=== PATIENT | male | born 1950 | race Caucasian/White ===

== ENCOUNTER → 2018-11-15 08:26 | Outpatient (CLI) | payer MEDICARE, SELFPAY ==
[2018-11-15 09:02] LABS: Basophils # 0.1 K/mm3 (0-0.2); Eosinophils # 0.4 K/mm3 (0.0-0.4); Eosinophils % 5.4 % (0.1-12.0); Hematocrit 44.3 % (42.0-52.0); Hemoglobin 14.7 g/dL (14.1-18.0); Lymphocytes # 1.6 K/mm3 (0.7-4.5); Lymphocytes % 22.6 % (10-50); Mean Corpuscular HGB Conc 33.2 g/dL (31.8-35.4); Mean Corpuscular Hemoglobin 31.1 pg (27.0-31.2); Mean Corpuscular Volume 93.6 fl (80-94); Mean Platelet Volume 7.2 fl (7.4-10.4); Monocytes # 0.6 K/mm3 (0.1-1.0); Monocytes % 7.9 % (1.7-9.3); Neutrophils # 4.6 K/mm3 (1.8-7.8); Neutrophils % 63.1 % (37.0-80.0); Platelet Count 317 K/mm3 (142-424); Red Blood Count 4.73 M/mm3 (4.60-6.20); Red Cell Distribution Width 12.9 % (11.5-17.5); White Blood Count 7.3 K/mm3 (4.8-10.8)
[2018-11-15 10:18] LABS: Alanine Aminotransferase 19 U/L (12-78); Albumin Level 3.7 gm/dL (3.4-5.0); Albumin/Globulin Ratio 1.1 (1.1-1.8); Alkaline Phosphatase 60 U/L (46-116); Anion Gap 9.1 mEq/L (5-15); Aspartate Amino Transferase 17 U/L (15-37); Bilirubin,Total 0.4 mg/dL (0.2-1.0); Blood Urea Nitrogen 19 mg/dL (7-18); Calcium 9.1 mg/dL (8.5-10.1); Carbon Dioxide 31 mmol/L (21.0-32.0); Chloride 107 mmol/L (98-107); Chol/HDL Ratio 5.6 (1-3.5); Cholesterol 223 mg/dL (140-200); Creatinine,Serum 1.07 mg/dL (0.70-1.30); Estimated Glomerular Filt Rate 69 ml/min (>60); GFR (African American) 84 ML/MIN (>60); Globulin 3.3 gm/dl (1.3-3.2); Glucose 111 mg/dL (74-106); HDL Cholesterol 40 mg/dL (27-67); LDL Cholesterol 161 mg/dL (0-130); Potassium 4.1 mmoL/L (3.5-5.1); Sodium 143 mmol/L (136-145); Triglycerides 112 mg/dL (30-200); VLDL Cholesterol 22 mg/dL (0-40)
== END ==
PROVIDERS: Visit Provider Internal Medicine Adolescent Medicine
DX: E78.5 Hyperlipidemia, unspecified (principal); J18.1 Lobar pneumonia, unspecified organism
CPT/HCPCS: 36415; 80053; 80061; 85025

== ENCOUNTER → 2019-01-10 07:28 | Outpatient (CLI) | payer MEDICARE, SELFPAY ==
[2019-01-10 10:38] LABS: Alanine Aminotransferase 19 U/L (12-78); Albumin Level 3.6 gm/dL (3.4-5.0); Albumin/Globulin Ratio 1.1 (1.1-1.8); Alkaline Phosphatase 65 U/L (46-116); Anion Gap 10.6 mEq/L (5-15); Aspartate Amino Transferase 13 U/L (15-37); Bilirubin,Total 0.4 mg/dL (0.2-1.0); Blood Urea Nitrogen 18 mg/dL (7-18); Calcium 9.2 mg/dL (8.5-10.1); Carbon Dioxide 28 mmol/L (21.0-32.0); Chloride 106 mmol/L (98-107); Chol/HDL Ratio 4.6 (1-3.5); Cholesterol 174 mg/dL (140-200); Creatinine,Serum 1.05 mg/dL (0.70-1.30); Estimated Glomerular Filt Rate 71 ml/min (>60); GFR (African American) 86 ML/MIN (>60); Globulin 3.4 gm/dl (1.3-3.2); Glucose 105 mg/dL (74-106); HDL Cholesterol 38 mg/dL (27-67); LDL Cholesterol 111 mg/dL (0-130); Potassium 3.6 mmoL/L (3.5-5.1); Sodium 141 mmol/L (136-145); Triglycerides 127 mg/dL (30-200); VLDL Cholesterol 25 mg/dL (0-40)
== END ==
PROVIDERS: Visit Provider Internal Medicine Adolescent Medicine
DX: E78.5 Hyperlipidemia, unspecified (principal)
CPT/HCPCS: 36415; 80053; 80061

== ENCOUNTER → 2019-03-07 07:02 | Outpatient (CLI) | payer MEDICARE, SELFPAY ==
[2019-03-07 07:37] LABS: Basophils # 0.1 K/mm3 (0-0.2); Eosinophils # 0.3 K/mm3 (0.0-0.4); Eosinophils % 3.6 % (0.1-12.0); Hematocrit 44.7 % (42.0-52.0); Hemoglobin 14.8 g/dL (14.1-18.0); Lymphocytes # 1.9 K/mm3 (0.7-4.5); Lymphocytes % 23.4 % (10-50); Mean Corpuscular HGB Conc 33.2 g/dL (31.8-35.4); Mean Corpuscular Hemoglobin 30.7 pg (27.0-31.2); Mean Corpuscular Volume 92.5 fl (80-94); Mean Platelet Volume 7.6 fl (7.4-10.4); Monocytes # 0.7 K/mm3 (0.1-1.0); Monocytes % 8.6 % (1.7-9.3); Neutrophils # 5.2 K/mm3 (1.8-7.8); Neutrophils % 63.3 % (37.0-80.0); Platelet Count 315 K/mm3 (142-424); Red Blood Count 4.83 M/mm3 (4.60-6.20); Red Cell Distribution Width 12.8 % (11.5-17.5); White Blood Count 8.2 K/mm3 (4.8-10.8)
[2019-03-07 08:25] LABS: Alanine Aminotransferase 18 U/L (12-78); Albumin Level 3.9 gm/dL (3.4-5.0); Albumin/Globulin Ratio 1.1 (1.1-1.8); Alkaline Phosphatase 57 U/L (46-116); Anion Gap 14.9 mEq/L (5-15); Aspartate Amino Transferase 15 U/L (15-37); Bilirubin,Total 0.4 mg/dL (0.2-1.0); Blood Urea Nitrogen 25 mg/dL (7-18); Calcium 8.9 mg/dL (8.5-10.1); Carbon Dioxide 27 mmol/L (21.0-32.0); Chloride 106 mmol/L (98-107); Cholesterol 201 mg/dL (140-200); Creatinine,Serum 1.16 mg/dL (0.70-1.30); Estimated Glomerular Filt Rate 63 ml/min (>60); GFR (African American) 76 ML/MIN (>60); Globulin 3.5 gm/dl (1.3-3.2); Glucose 100 mg/dL (74-106); HDL Cholesterol 50 mg/dL (27-67); LDL Cholesterol 128 mg/dL (0-130); Potassium 3.9 mmoL/L (3.5-5.1); Sodium 144 mmol/L (136-145); Total Protein,Serum 7.4 gm/dL (6.4-8.2); Triglycerides 113 mg/dL (30-200); VLDL Cholesterol 23 mg/dL (0-40)
== END ==
PROVIDERS: Visit Provider Internal Medicine Adolescent Medicine
DX: E78.5 Hyperlipidemia, unspecified (principal); I10 Essential (primary) hypertension
CPT/HCPCS: 36415; 80053; 80061; 85025

== ENCOUNTER 2020-06-20 20:02 | Emergency (ER) | payer MEDICARE, SELFPAY ==
[2020-06-20 20:27] VITALS: BP 144/104; PULSE 88; RESP 16; TEMP 36.7; O2SAT 95; BMI 23.8
--- NOTE | 2020-06-20 20:31 | ECG_ITS ---
APPROVED REPORT Exam: Resting ECG HR:76 bpm ECG Measurements Heart Rate 76 AXES [place] 162 P 35 QRSd 94 QRS -14 QT 370 T 9 QTc 416 Conclusion Normal sinus rhythm Inferior infarct, age undetermined Old late r wave progression Abnormal ECG Electronically signed by : Patricio Kuhn, 06/21/2020 06:33:49
--- NOTE | 2020-06-20 21:09 | [facility].EDGENADL ---
ED Disposition Clinical Impression: Essential hypertension Disposition: Home, Self-Care Condition on Discharge: Good Instructions: DI for High Blood Pressure Additional Instructions: Continue current blood pressure medication. Return to the emergency department if severe headache, vomiting, blurry vision, chest pain, or blood pressure greater than 220 top number or [address] Kuhn tomorrow. Call in the morning. Referrals: Patricio Kuhn MD [Primary Care Provider] - - Critical Care Critical Care Time: No Attestation: On 06/20/20, the high probability of a clinically significant, sudden or life threatening deterioration of the following system(s) required my full and direct attention, intervention and personal management. The time I documented below is in addition to time spent performing reported procedures but includes the following listed in this critical care notation. Medical Decision Making - Clarke Inquiry Pt receiving controlled substance: No Vital Signs: 06/20/20 20:27 06/20/20 21:13 Temperature 98.1 F 98.0 F Temperature Source Oral Oral Pulse Rate [Right Radial] 88 83 Respiratory Rate 16 14 Blood Pressure [Right Arm] 144/104 H 188/94 H Blood Pressure Mean [Right Arm] 117 125 02 Sat by Pulse Oximetry 95 96 Oxygen Delivery Method Room Air Room Air - Lab Data Lab Results 06/20/20 21:30: WBC 12.4 H, RBC 5.15, Hgb 15.4, Hct 46.3, MCV 89.9, MCH 30.0, MCHC 33.3, RDW 13.0, Plt Count 385, MPV 7.8, Neut % (Auto) 61.4, Lymph % (Auto) 28.3, Beckham % (Auto) 7.2, Eos % (Auto) 2.4, Baso % (Auto) 0.8, Neut # (Auto) 7.6, Lymph # (Auto) 3.5, Beckham # (Auto) 0.9, Eos # (Auto) 0.3, Baso # (Auto) 0.1 06/20/20 21:30: Sodium 140, Potassium 3.9, Chloride 108 H, Carbon Dioxide 23, Anion Gap 12.9, BUN 23 H, Creatinine 1.00, Estimated Creat Clear 68, Estimated GFR 74, Est GFR ( Amer) 90, Glucose 112 H, Calcium 10.0 Result diagrams: 06/20/20 21:30 06/20/20 21:30 - ECG Data Tracing #1 EKG interpreted by Navjot Albert MD: Rhythm: sinus Rate: 76 [place]: normal Ectopy: none Conduction: normal ST Segment Changes: none T Wave Changes: none Q Waves: none No evidence of acute ischemia or injury Prior electrocardiagrams reviewed. No change from prior tracings. - Physician Consults Physician Consulted: Dong Kuhn Time: 21:57 Reason -: Pt condition Comment/Response: Not change anything in the patient's current medication regimen. Recommends that he just see Dr. Kuhn this week for further management. General Adult HPI - General Stated complaint: BP elevated Time Seen by Provider: 06/20/20 21:10 Mode of Arrival: Ambulatory Source of Information: Patient Limitations: No Limitations Description of Symptoms (Recalled from ER Triage Doc. by RN): high blood pressure, started having nausea. - History of Present Illness HPI narrative: States his blood pressure has been running high today. Before coming to the emergency room he checked it and was 180/100. His medication list says that he is on amlodipine and hydrochlorothiazide for blood pressure in addition to atorvastatin. His medication list on the computer here only indicates amlodipine. He is compliant with medications. He is asymptomatic except for having slight headaches off and on. He says he gets that when his blood pressure is elevated. No severe headaches. No blurry vision. No chest pain, shortness of breath, nausea or vomiting. He says that he is planning on calling Dr. Kuhn tomorrow morning and they will get him in for follow-up, but he does not yet have an appointment. - Related Data Home Medications Medication Instructions Recorded Confirmed Amlodipine Besylate [Norvasc 5mg 5 mg PO DAILY 06/20/20 06/20/20 tablet] Lovastatin 20 mg PO DAILY 06/20/20 06/20/20 Allergies Allergy/AdvReac Type Severity Reaction Status Date / Time No Known Allergies Allergy Verified 11/01/18 20:56 [facility] Histo
[2020-06-20 21:13] VITALS: BP 188/94; PULSE 83; RESP 14; TEMP 36.7; O2SAT 96; BMI 25.0
[2020-06-20 21:40] LABS: Basophils # 0.1 K/mm3 (0-0.2); Basophils % 0.8 % (0.1-2.0); Eosinophils # 0.3 K/mm3 (0.0-0.4); Eosinophils % 2.4 % (0.1-12.0); Hematocrit 46.3 % (42.0-52.0); Hemoglobin 15.4 g/dL (14.1-18.0); Lymphocytes # 3.5 K/mm3 (0.7-4.5); Lymphocytes % 28.3 % (10-50); Mean Corpuscular HGB Conc 33.3 g/dL (31.8-35.4); Mean Corpuscular Volume 89.9 fl (80-94); Mean Platelet Volume 7.8 fl (7.4-10.4); Monocytes # 0.9 K/mm3 (0.1-1.0); Monocytes % 7.2 % (1.7-9.3); Neutrophils # 7.6 K/mm3 (1.8-7.8); Neutrophils % 61.4 % (37.0-80.0); Platelet Count 385 K/mm3 (142-424); Red Blood Count 5.15 M/mm3 (4.60-6.20); White Blood Count 12.4 K/mm3 (4.8-10.8)
[2020-06-20 21:44] LABS: Chloride 108 mmol/L (98-107); Potassium 3.9 mmoL/L (3.5-5.1); Sodium 140 mmol/L (136-145)
[2020-06-20 21:47] LABS: Anion Gap 12.9 mEq/L (5-15); Blood Urea Nitrogen 23 mg/dl (9-20); Carbon Dioxide 23 mmol/L (22.0-30.0); Creatinine Clearance Estimated 68 mL/min (50-200); Estimated Glomerular Filt Rate 74 ml/min (>60); GFR (African American) 90 ML/MIN (>60); Glucose 112 mg/dl (74-100)
[2020-06-20 22:17] VITALS: BP 169/90; PULSE 84; RESP 18; TEMP 36.7; O2SAT 98
== END 2020-06-20 22:18 | disposition home or self-care (01) ==
LOC: ER 20:13 → UTC 20:14 → ER 20:46
PROVIDERS: Emergency Provider Emergency Medicine; PCP Internal Medicine Adolescent Medicine
DX: I10 Essential (primary) hypertension (principal); R51.9 Headache, unspecified; R11.0 Nausea
CPT/HCPCS: 80048; 85025; 93005; 99282

== ENCOUNTER → 2020-07-08 09:58 | Outpatient (CLI) | payer MEDICARE, SELFPAY ==
[2020-07-08 10:56] LABS: Chloride 104 mmol/L (98-107); Sodium 139 mmol/L (136-145)
[2020-07-08 10:57] LABS: Potassium 3.7 mmoL/L (3.5-5.1)
[2020-07-08 10:59] LABS: Blood Urea Nitrogen 20 mg/dl (9-20); Estimated Glomerular Filt Rate 67 ml/min (>60); GFR (African American) 81 ML/MIN (>60)
[2020-07-08 11:00] LABS: Anion Gap 12.7 mEq/L (5-15); Calcium 9.5 mg/dl (8.4-10.2); Carbon Dioxide 26 mmol/L (22.0-30.0); Glucose 118 mg/dl (74-100)
== END ==
PROVIDERS: Visit Provider Internal Medicine Adolescent Medicine
DX: I10 Essential (primary) hypertension (principal)
CPT/HCPCS: 36415; 80048